=== PATIENT | female | born 1930 | race Caucasian/White ===

== ENCOUNTER 2019-06-16 13:43 | Inpatient (IN) ==
[2019-06-17] MEDS ORDERED: *HR* OxyCODONE Immed Rel 5 MG TABLET PO PRN (18:34)
[2019-06-17 18:46] LABS: Bilirubin,Urine Negative (Negative); Blood,Urine Negative (Negative); Clarity,Urine Clear (Clear); Color,Urine Yellow (Yellow); Glucose,Urine (UA) Normal (Normal); Ketones,Urine Trace mg/dL (Negative); Leukocyte Esterase,Urine Negative (Negative); Nitrite,Urine Negative (Negative); Protein,Urine Negative (Neg-Trace); Urobilinogen,Urine Normal (Normal)
[2019-06-17] MEDS: Acetaminophen 325 MG TABLET PO PRN (19:59)
[2019-06-17] MEDS: clonazePAM 0.5 MG TABLET PO SCH (20:00)
[2019-06-17] MEDS: amLODIPine 5 MG TABLET PO SCH (20:00)
[2019-06-18 05:27] LABS: Basophils # 0.1 K/mcL (0.0-0.2); Eosinophils # 0.3 K/mcL (0.0-0.6); Eosinophils % 4.8 %; Hematocrit 27.1 % (35.3-44.9); Hemoglobin 8.6 g/dL (11.5-15.4); Immature Granulocytes % 0.5 % (0-4); Lymphocytes # 1.1 K/mcL (0.6-4.6); Lymphocytes % 18.1 %; Mean Corpuscular HGB Conc 31.7 g/dL (31.6-35.5); Mean Corpuscular Hemoglobin 29.1 pg (28.0-33.3); Mean Corpuscular Volume 91.6 fL (83.0-100.0); Mean Platelet Volume 11.9 fL (9.4-12.4); Monocytes # 0.7 K/mcL (0.0-1.3); Monocytes % 11.8 %; Neutrophils # 3.7 K/mcL (1.6-8.9); Platelet Count 197 K/mcL (140-400); Red Blood Count 2.96 M/mcL (3.82-4.97); Red Cell Distribution Width 14.6 % (11.5-14.5); Segmented Neutrophils % 63.8 %; White Blood Count 5.9 K/mcL (4.3-11.1)
[2019-06-18 05:48] LABS: Alanine Aminotransferase 5 Units/L (7-52); Albumin 3.4 g/dL (3.5-5.7); Albumin/Globulin Ratio 1.4 (1.1-2.2); Alkaline Phosphatase 51 Units/L (34-104); Aspartate Amino Transferase 14 Units/L (13-39); BUN/Creatinine Ratio 27 (6-26); Bilirubin,Total 0.5 mg/dL (0.3-1.0); Blood Urea Nitrogen 21 mg/dL (8-23); Calcium 8.8 mg/dL (8.6-10.3); Carbon Dioxide 29 mEq/L (23-29); Chloride 110 mEq/L (98-107); Globulin 2.4 g/dL (2.4-3.5); Glucose 98 mg/dL (70-105); Osmolality,Calculated 303 (280-300); Potassium 3.3 mEq/L (3.5-5.1); Sodium 145 mEq/L (136-145); Total Protein 5.8 g/dL (6.4-8.9); eGFR For African Americans > 60 (> 60); eGFR For Non-African Americans > 60 (> 60)
[2019-06-18] MEDS: Acetaminophen 325 MG TABLET PO PRN ×2 (06:04→17:42)
[2019-06-18] MEDS: *HR* Enoxaparin 40 MG/0.4 ML SYRINGE SQ SCH (06:05)
[2019-06-18] MEDS ORDERED: IRON SUCROSE COMPLEX 200 MG IV SCH (09:00)
[2019-06-18] MEDS: Aspirin Enteric Coated 81 MG Tablet PO SCH (09:06)
[2019-06-18] MEDS: clonazePAM 0.5 MG TABLET PO SCH ×2 (09:07→20:26)
[2019-06-18] MEDS: amLODIPine 5 MG TABLET PO SCH ×2 (09:07→20:26)
[2019-06-18] MEDS: Iron Sucrose Complex 200 MG in 0.9 % Sodium Chloride 100 ML IVPB SCH (13:30)
[2019-06-18] MEDS ORDERED: Bisacodyl 10 MG RECTAL SUPPOSITORY RC PRN (18:38)
[2019-06-18] MEDS: *HR* HYDROcodone/Acet 5/325 mg TABLET PO PRN (23:10)
[2019-06-19] MEDS ORDERED: Haloperidol Lactate 5 MG/ML VIAL IVP ONE ×3 (01:21→03:09)
[2019-06-19] MEDS: *HR* Enoxaparin 40 MG/0.4 ML SYRINGE SQ SCH (05:37)
[2019-06-19] MEDS: clonazePAM 0.5 MG TABLET PO SCH ×2 (09:39→18:12)
[2019-06-19] MEDS: amLODIPine 5 MG TABLET PO SCH ×2 (09:40→18:13)
[2019-06-19] MEDS: Aspirin Enteric Coated 81 MG Tablet PO SCH (09:40)
[2019-06-19] MEDS: Sennosides 8.6 MG TABLET PO SCH (09:40)
[2019-06-19] MEDS: Iron Sucrose Complex 200 MG in 0.9 % Sodium Chloride 100 ML IVPB SCH (10:48)
[2019-06-19] MEDS: *HR* HYDROcodone/Acet 5/325 mg TABLET PO PRN (14:03)
[2019-06-19 15:30] LABS: Hematocrit 28.7 % (35.3-44.9); Hemoglobin 9.4 g/dL (11.5-15.4); Mean Corpuscular HGB Conc 32.8 g/dL (31.6-35.5); Mean Corpuscular Hemoglobin 29.5 pg (28.0-33.3); Mean Platelet Volume 11.2 fL (9.4-12.4); Platelet Count 267 K/mcL (140-400); Red Blood Count 3.19 M/mcL (3.82-4.97); Red Cell Distribution Width 14.6 % (11.5-14.5); White Blood Count 8.2 K/mcL (4.3-11.1)
[2019-06-19 15:46] LABS: BUN/Creatinine Ratio 18 (6-26); Blood Urea Nitrogen 12 mg/dL (8-23); Carbon Dioxide 26 mEq/L (23-29); Chloride 104 mEq/L (98-107); Glucose 114 mg/dL (70-105); Osmolality,Calculated 285 (280-300); Potassium 3.4 mEq/L (3.5-5.1); Sodium 137 mEq/L (136-145); eGFR For African Americans > 60 (> 60); eGFR For Non-African Americans > 60 (> 60)
[2019-06-19] MEDS ORDERED: Lactulose Oral Soln 20 GM/30 ML UDC PO PRN (16:52)
[2019-06-19] MEDS ORDERED: amLODIPine 5 MG TABLET PO SCH (18:00)
[2019-06-19] MEDS: Potassium Chloride Elixir 20 MEQ/15 ML UDC PO SCH (18:12)
[2019-06-19] MEDS: 0.9 % Sodium Chloride 1,000 ML IVC SCH (18:13)
[2019-06-19] MEDS: Lisinopril 20 MG TABLET PO SCH (18:15)
[2019-06-20] MEDS: 0.9 % Sodium Chloride 1,000 ML IVC SCH (04:17)
[2019-06-20] MEDS: *HR* Enoxaparin 40 MG/0.4 ML SYRINGE SQ SCH (04:19)
[2019-06-20 05:36] LABS: Hematocrit 29.5 % (35.3-44.9); Hemoglobin 9.6 g/dL (11.5-15.4); Mean Corpuscular HGB Conc 32.5 g/dL (31.6-35.5); Mean Corpuscular Hemoglobin 29.4 pg (28.0-33.3); Mean Corpuscular Volume 90.5 fL (83.0-100.0); Mean Platelet Volume 11.3 fL (9.4-12.4); Platelet Count 279 K/mcL (140-400); Red Blood Count 3.26 M/mcL (3.82-4.97); Red Cell Distribution Width 14.6 % (11.5-14.5); White Blood Count 7.3 K/mcL (4.3-11.1)
[2019-06-20 05:55] LABS: BUN/Creatinine Ratio 16 (6-26); Blood Urea Nitrogen 10 mg/dL (8-23); Calcium 8.7 mg/dL (8.6-10.3); Carbon Dioxide 25 mEq/L (23-29); Chloride 107 mEq/L (98-107); Glucose 103 mg/dL (70-105); Magnesium 1.9 mg/dL (1.6-2.6); Osmolality,Calculated 285 (280-300); Potassium 3.4 mEq/L (3.5-5.1); Sodium 138 mEq/L (136-145); eGFR For African Americans > 60 (> 60); eGFR For Non-African Americans > 60 (> 60)
[2019-06-20] MEDS: Aspirin Enteric Coated 81 MG Tablet PO SCH (08:23)
[2019-06-20] MEDS: Iron Sucrose Complex 200 MG in 0.9 % Sodium Chloride 100 ML IVPB SCH (08:23)
[2019-06-20] MEDS: clonazePAM 0.5 MG TABLET PO SCH ×2 (08:23→17:20)
[2019-06-20] MEDS: Lisinopril 20 MG TABLET PO SCH (08:24)
[2019-06-20] MEDS: amLODIPine 5 MG TABLET PO SCH ×2 (08:24→17:20)
[2019-06-20] MEDS: Potassium Chloride Elixir 20 MEQ/15 ML UDC PO SCH ×2 (08:24→17:20)
[2019-06-20] MEDS: *HR* HYDROcodone/Acet 5/325 mg TABLET PO PRN ×2 (11:37→17:24)
[2019-06-21] MEDS: *HR* HYDROcodone/Acet 5/325 mg TABLET PO PRN ×2 (04:26→18:01)
[2019-06-21] MEDS: *HR* Enoxaparin 40 MG/0.4 ML SYRINGE SQ SCH (04:27)
[2019-06-21] MEDS: Potassium Chloride Elixir 20 MEQ/15 ML UDC PO SCH ×2 (08:40→18:01)
[2019-06-21] MEDS: amLODIPine 5 MG TABLET PO SCH ×2 (08:41→18:01)
[2019-06-21] MEDS: clonazePAM 0.5 MG TABLET PO SCH ×2 (08:41→18:01)
[2019-06-21] MEDS: Lisinopril 20 MG TABLET PO SCH (08:41)
[2019-06-21] MEDS: Aspirin Enteric Coated 81 MG Tablet PO SCH (08:41)
[2019-06-21] MEDS: Sennosides 8.6 MG TABLET PO SCH (08:41)
[2019-06-21] MEDS: Iron Sucrose Complex 200 MG in 0.9 % Sodium Chloride 100 ML IVPB SCH (09:53)
[2019-06-21] MEDS: Acetaminophen 325 MG TABLET PO PRN (21:03)
[2019-06-22] MEDS: *HR* HYDROcodone/Acet 5/325 mg TABLET PO PRN ×3 (00:09→12:45)
[2019-06-22] MEDS: *HR* Enoxaparin 40 MG/0.4 ML SYRINGE SQ SCH (05:33)
[2019-06-22] MEDS: Aspirin Enteric Coated 81 MG Tablet PO SCH (09:09)
[2019-06-22] MEDS: clonazePAM 0.5 MG TABLET PO SCH ×3 (09:09→17:20)
[2019-06-22] MEDS: Lisinopril 20 MG TABLET PO SCH (09:09)
[2019-06-22] MEDS: Potassium Chloride Elixir 20 MEQ/15 ML UDC PO SCH ×2 (09:09→17:19)
[2019-06-22] MEDS: amLODIPine 5 MG TABLET PO SCH ×2 (09:10→17:23)
[2019-06-22] MEDS: Iron Sucrose Complex 200 MG in 0.9 % Sodium Chloride 100 ML IVPB SCH (09:16)
[2019-06-22 15:09] LABS: Basophils # 0.1 K/mcL (0.0-0.2); Basophils % 0.8 %; Eosinophils # 0.5 K/mcL (0.0-0.6); Eosinophils % 5.1 %; Hematocrit 29.4 % (35.3-44.9); Hemoglobin 9.3 g/dL (11.5-15.4); Immature Granulocytes % 2.1 % (0-4); Lymphocytes # 1.7 K/mcL (0.6-4.6); Mean Corpuscular HGB Conc 31.6 g/dL (31.6-35.5); Mean Corpuscular Hemoglobin 29.8 pg (28.0-33.3); Mean Corpuscular Volume 94.2 fL (83.0-100.0); Monocytes # 1.1 K/mcL (0.0-1.3); Monocytes % 10.6 %; Neutrophils # 6.6 K/mcL (1.6-8.9); Platelet Count 338 K/mcL (140-400); Red Blood Count 3.12 M/mcL (3.82-4.97); Segmented Neutrophils % 64.4 %; White Blood Count 10.2 K/mcL (4.3-11.1)
[2019-06-23] MEDS: *HR* HYDROcodone/Acet 5/325 mg TABLET PO PRN ×2 (03:43→18:01)
[2019-06-23] MEDS: *HR* Enoxaparin 40 MG/0.4 ML SYRINGE SQ SCH (03:44)
[2019-06-23] MEDS: Potassium Chloride Elixir 20 MEQ/15 ML UDC PO SCH ×2 (09:08→17:58)
[2019-06-23] MEDS: Lisinopril 20 MG TABLET PO SCH (09:09)
[2019-06-23] MEDS: clonazePAM 0.5 MG TABLET PO SCH ×3 (09:09→17:58)
[2019-06-23] MEDS: Sennosides 8.6 MG TABLET PO SCH (09:09)
[2019-06-23] MEDS: amLODIPine 5 MG TABLET PO SCH ×2 (09:09→17:58)
[2019-06-23] MEDS: Aspirin Enteric Coated 81 MG Tablet PO SCH (09:09)
[2019-06-23] MEDS: Acetaminophen 325 MG TABLET PO PRN (09:11)
[2019-06-23] MEDS ORDERED: *HR* LORazepam 2 MG/ML VIAL IVP ONE (23:22)
[2019-06-24] MEDS ORDERED: Morphine Sulfate 2 MG/ML SYRINGE IVP ONE ×2 (00:59→01:30)
[2019-06-24] MEDS: *HR* HYDROcodone/Acet 5/325 mg TABLET PO PRN ×3 (03:29→21:58)
[2019-06-24] MEDS: *HR* Enoxaparin 40 MG/0.4 ML SYRINGE SQ SCH (03:40)
[2019-06-24] MEDS: Aspirin Enteric Coated 81 MG Tablet PO SCH (08:08)
[2019-06-24] MEDS: Lisinopril 20 MG TABLET PO SCH (08:08)
[2019-06-24] MEDS: clonazePAM 0.5 MG TABLET PO SCH ×3 (08:08→17:41)
[2019-06-24] MEDS: amLODIPine 5 MG TABLET PO SCH ×2 (08:08→17:41)
[2019-06-24] MEDS: Potassium Chloride Elixir 20 MEQ/15 ML UDC PO SCH ×2 (08:08→17:41)
[2019-06-25] MEDS: *HR* Enoxaparin 40 MG/0.4 ML SYRINGE SQ SCH (05:06)
[2019-06-25] MEDS: Potassium Chloride Elixir 20 MEQ/15 ML UDC PO SCH ×2 (10:21→17:19)
[2019-06-25] MEDS: Aspirin Enteric Coated 81 MG Tablet PO SCH (10:21)
[2019-06-25] MEDS: Sennosides 8.6 MG TABLET PO SCH (10:22)
[2019-06-25] MEDS: *HR* HYDROcodone/Acet 5/325 mg TABLET PO PRN ×2 (10:30→17:18)
[2019-06-25] MEDS: clonazePAM 0.5 MG TABLET PO SCH ×3 (10:31→17:18)
[2019-06-25] MEDS: amLODIPine 5 MG TABLET PO SCH ×2 (10:31→17:18)
[2019-06-25] MEDS: Lisinopril 20 MG TABLET PO SCH (10:31)
[2019-06-26] MEDS: *HR* HYDROcodone/Acet 5/325 mg TABLET PO PRN ×3 (02:43→10:27)
[2019-06-26] MEDS: *HR* Enoxaparin 40 MG/0.4 ML SYRINGE SQ SCH (05:03)
[2019-06-26 06:45] VITALS: BP 174/70
[2019-06-26] MEDS: Aspirin Enteric Coated 81 MG Tablet PO SCH ×3 (08:29→10:27)
[2019-06-26] MEDS: Potassium Chloride Elixir 20 MEQ/15 ML UDC PO SCH ×2 (08:29→08:57)
[2019-06-26] MEDS: amLODIPine 5 MG TABLET PO SCH ×3 (08:30→10:27)
[2019-06-26] MEDS: Lisinopril 20 MG TABLET PO SCH ×3 (08:30→10:28)
[2019-06-26] MEDS: clonazePAM 0.5 MG TABLET PO SCH ×3 (08:30→10:28)
[2019-06-27] MEDS ORDERED: Potassium Chloride Elixir 20 MEQ/15 ML UDC PO SCH (09:00)
== END 2019-06-26 13:20 | DRG 559 ==
LOC: INPGRE 06-17 17:44
PROVIDERS: ADMIT Family Medicine; ATTEND Family Medicine